=== PATIENT | female | born 1995 | race African-American/Black ===

== ENCOUNTER 2024-06-11 18:05 | Emergency (ER) | payer BC, OTHER, SELFPAY | END 2024-06-11 19:20 | disposition home or self-care (01) | LOC: CSHERS 18:05 | DX: L02.411 Cutaneous abscess of right axilla (principal); I10 Essential (primary) hypertension | CPT/HCPCS: 99282 ==

== ENCOUNTER 2025-04-22 07:51 | Emergency (ER) | payer SELFPAY | END 2025-04-22 08:53 | disposition home or self-care (01) | LOC: CSHERS 07:51 | DX: M77.8 Other enthesopathies, not elsewhere classified (principal); I10 Essential (primary) hypertension; E66.9 Obesity, unspecified | CPT/HCPCS: 99282 ==